=== PATIENT | female | born 1980 | race Hispanic/Latino ===

== ENCOUNTER 2016-09-27 03:06 | Emergency (ER) | payer OTHER ==
[2016-09-27 03:18] VITALS: BP 154/95; PULSE 130; RESP 18; TEMP 99; O2SAT 99
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
== END 2016-09-27 05:35 | disposition home or self-care (01) ==
LOC: H.ER 03:06
DX: F10.129 Alcohol abuse with intoxication, unspecified (principal); S01.81XA Laceration without foreign body of other part of head, initial encounter; Y04.0XXA Assault by unarmed brawl or fight, initial encounter; Y92.89 Other specified places as the place of occurrence of the external cause; R68.84 Jaw pain; Z88.0 Allergy status to penicillin